=== PATIENT | male | born 2005 | race Caucasian/White ===

== ENCOUNTER 2025-01-19 13:41 | Emergency (ER) | payer MEDICAID, OTHER ==
[~2025-01-19] VITALS: Ht 170.2 cm; Wt 65.0 kg
[2025-01-19 13:50] VITALS: TEMP 98.2
[2025-01-19] MEDS: LIDOCAINE 1%/EPI 1:200,000/PF 10 ML VIAL SQ ONE (15:00)
[2025-01-19] MEDS ORDERED: IBUP-1492 PO (15:01)
[2025-01-19] MEDS ORDERED: CEPH-558 PO (15:01)
[2025-01-19] MEDS: CEPHALEXIN MONOHYDRATE 500 MG CAPSULE PO ONE (15:03)
[2025-01-19 15:12] VITALS: BP 137/75; PULSE 90; RESP 18; O2SAT 100
== END 2025-01-19 15:13 | disposition home or self-care (01) ==
LOC: EMS 13:42
DX: S01.01XA Laceration without foreign body of scalp, initial encounter (principal); F12.90 Cannabis use, unspecified, uncomplicated; W22.8XXA Striking against or struck by other objects, initial encounter; Y93.89 Activity, other specified; Y92.89 Other specified places as the place of occurrence of the external cause; Y99.8 Other external cause status
CPT/HCPCS: 99283; 12002; J3490

== ENCOUNTER 2025-01-26 10:26 | Emergency (ER) | payer OTHER ==
[~2025-01-26] VITALS: Ht 170.2 cm; Wt 65.0 kg
[~2025-01-26 10:26] MED LIST: CEPH-558 PO; IBUP-1492 PO
[2025-01-26 10:34] VITALS: TEMP 98.1
[2025-01-26 12:10] VITALS: BP 121/88; PULSE 86; RESP 20; O2SAT 99
== END 2025-01-26 12:26 | disposition home or self-care (01) ==
LOC: EMS 10:26
DX: S01.01XD Laceration without foreign body of scalp, subsequent encounter (principal); F12.90 Cannabis use, unspecified, uncomplicated; Z79.899 Other long term (current) drug therapy; X58.XXXD Exposure to other specified factors, subsequent encounter
CPT/HCPCS: 99282; Z7502